=== PATIENT | female | born 1995 | race Caucasian/White ===

== ENCOUNTER 2017-05-28 23:30 | Emergency (ER) | payer OTHER ==
[~2017-05-28] VITALS: Ht 172.7 cm; Wt 72.8 kg
[2017-05-28 23:37] VITALS: TEMP 37.2; Ht 172.7 cm; Wt 72.8 kg
--- NOTE | 2017-05-29 00:08 | DIAGNOSTIC IMAGING REPORT ---
CT SCAN OF THE BRAIN WITHOUT IV CONTRAST CLINICAL HISTORY: Headache. Head injury. COMPARISON STUDY: No priors. TECHNIQUE: Unenhanced axial CT scan of the brain is performed from the vertex to the skull base. A dose lowering technique was utilized adhering to the principles of ALARA. CT DOSE: 537.48 mGy.cm FINDINGS: Brain parenchyma: The brain parenchyma is normal in appearance. There is no hemorrhage, mass effect, or evidence of acute territorial ischemia by CT criteria. Conteh-white matter is preserved. No extra-axial fluid collection is seen. Ventricles, sulci, cisterns: Normal in configuration. Intracranial vasculature: The visualized intracranial vasculature at the skull base is normal in appearance. Calvarium: There is no depressed calvarial fracture. Sinuses and mastoids: The visualized paranasal sinuses are clear. The mastoid air cells are well pneumatized. Orbits: The bony orbits are grossly intact. IMPRESSION: No acute intracranial abnormality. Electronically signed by: Krish Hardy M.D. 05/29/2017 12:06 AM Dictated Date/Time: 05/29/2017 12:05 AM
[2017-05-29 00:24] VITALS: BP 107/63; PULSE 90; O2SAT 97
--- NOTE | 2017-05-29 02:06 | EMERGENCY ROOM VISIT NOTE ---
History Report prepared by Rickey: Benji Gramajo Under the Supervision of: Dr. Benji Lucero M.D. First contact with patient: 23:45 Chief Complaint: HEAD INJURY (MINOR) Stated Complaint: POTENTIAL CONCUSSION,MAJOR HEADACHE History of Present Illness The patient is a 21 year old female who presents to the Emergency Room with complaints of a head injury that occurred yesterday around midnight, approximately 24 hours ago. Patient states that she was turning around to talk to a friend when she hit the back of her head against a wall after she "misjudged" how far she was from it. She denies passing out after hitting her head. She states she hit her head fairly hard. She states that she has a lot of pressure "all over her head". She state the pressure is exacerbated with movement. Patient adds that she has a headache, intermittent stuffy nose, and sore throat. She denies associated symptoms of vomiting and focal numbness. Patient states that she "moderately" drank alcohol yesterday. She adds that she had 4 alcoholic drinks today. She states that her last drink was 6 hours ago. Patient states that she woke up this morning with a headache. She states that she does not usually get headaches from drinking. Patient adds that she only hit her head once. She does complain of nausea. Source of History: patient Onset: Yesterday around midnight Position: head Quality: pressure Modifying Factors (Worsening): movement Associated Symptoms: + headache, + sorethroat, No vomiting, No numbness Note: Patient has a stuffy nose. Review of Systems See HPI for pertinent positives & negatives. A total of 10 systems reviewed and were otherwise negative. Past Medical & Surgical No pertinent past medical & surgical history. Family History No pertinent family history. Social History Smoking Status: Never Smoker Occupation Status: [employer] student Current/Historical Medications No Active Prescriptions or Reported Meds Allergies Coded Allergies: No Known Allergies (Unverified , 05/29/17) Physical Exam Vital Signs Date Time Temp Pulse Resp B/P (MAP) Pulse Ox O2 Delivery O2 Flow Rate FiO2 05/29/17 00:24 90 16 107/63 97 Room Air 05/28/17 23:37 37.2 103 18 110/65 95 Room Air Physical Exam Constitutional: Vital signs reviewed. Eyes: Pupils are equal round reactive to light. Conjunctiva are noninjected. ENT: Pharynx is clear without erythema or exudate. Mucous membranes are moist. Neck supple without meningeal signs. Respiratory: Clear to auscultation bilaterally. Breath sounds are equal bilaterally. Cardiovascular: Regular rate and rhythm. No rubs or gallops. GI: Soft, nondistended and nontender. Bowel sounds are present. Musculoskeletal: No peripheral edema. No lower extremity tenderness. Integumentary: No cyanosis. Neurological: The patient is awake and alert. Cranial nerves II-XII are intact. Motor is 5 out of 5 all extremities. Sensation is intact to light touch all extremities. Normal speech. No pronator drift. Psychiatric: Normal affect. Medical Decision & Procedures ER Provider Diagnostic Interpretation: Radiology results as stated below per my review and the radiologist's interpretation: CT SCAN OF THE BRAIN WITHOUT IV CONTRAST CLINICAL HISTORY: Headache. Head injury. COMPARISON STUDY: No priors. TECHNIQUE: Unenhanced axial CT scan of the brain is performed from the vertex to the skull base. A dose lowering technique was utilized adhering to the principles of ALARA. CT DOSE: 537.48 mGy.cm FINDINGS: Brain parenchyma: The brain parenchyma is normal in appearance. There is no hemorrhage, mass effect, or evidence of acute territorial ischemia by CT criteria. Conteh-white matter is preserved. No extra-axial fluid collection is seen. Ventricles, sulci, cisterns: Normal in configuration. Intracranial vasculature: The visualized intracranial vasculature at the skull base is normal in appearance. Calvarium: There is no depressed calvarial fracture. Sinuses and mastoids: The visualized paranasal sinuses are clear. The mastoid air cells are well pneumatized. Orbits: The bony orbits are grossly intact. IMPRESSION: No acute intracranial abnormality. Electronically signed by: Krish Hardy M.D. 05/29/2017 12:06 AM Dictated Date/Time: 05/29/2017 12:05 AM Laboratory Results Test 05/28/17 23:52 Bedside Urine Test NEG (NEG) Laboratory results as reviewed by me. ED Course 2345: The patient was evaluated in room A3. A complete history and physical exam was performed. 0020: Upon reevaluation, the patient appeared to have improvement of her symptoms. I discussed tonight's findings with her. I advised the patient to avoid alcohol. She verbalized agreement of the treatment plan. She was discharged home. Medical Decision This is a 21-year-old female presents with a head injury and headache. Differential diagnosis includes contusion, concussion, intracranial hemorrhage, hangover, migraine headache. I did perform a limited focused review of portions of the patient's old chart on the electronic medical record. The patient has had no prior visits to this hospital. I did evaluate the patient as noted above. The patient is presenting with headache after a recent head injury without LOC. She is also nauseated. Her GCS is 15. I did obtain a urine test which was negative. I did discuss risks and benefits of CT scanning with the patient. I did order a CT of the head. I did review the images myself as well as the radiology report as described above. There is no evidence of intracranial hemorrhage or acute abnormality. I did discuss the test results with the patient. She was advised to avoid alcohol and to follow-up with her doctor [facility]. She was discharged in good condition. She was given precautions regarding head injuries. Head Trauma GCS Score: 15 Medication Reconcilliation Current Medication List: was personally reviewed by me Blood Pressure Screening Patient's blood pressure: Normal blood pressure Blood pressure disposition: Did not require urgent referral Impression Primary Impression: Acute head injury Scribe Attestation The scribe's documentation has been prepared under my direct and personally reviewed by me in its entirety. I confirm that the note above accurately reflects all work, treatment, procedures, and medical decision making performed by me. Departure Information Dispostion Home / Self-Care Prescriptions No Active Prescriptions or Reported Meds Referrals No Doctor, Assigned (PCP) Forms HOME CARE DOCUMENTATION FORM, IMPORTANT VISIT INFORMATION Patient Instructions ED Head Injury Closed, My [facility] [address] Additional Instructions You have been examined and treated today on an emergency basis only. This is not a substitute for, or an effort to provide, complete comprehensive medical care. It is impossible to recognize and treat all injuries or illnesses in a single emergency department visit. It is therefore important that you follow up closely with [facility]. Call as soon as possible for an appointment. Return for worsening symptoms or if you develop fever, vomiting, numbness or weakness on one side of your body, difficulty with your speech gait or any other concerning symptoms. Problem Qualifiers Primary Impression: Acute head injury Encounter type: initial encounter Qualified Codes: S09.90XA - Unspecified injury of head, initial encounter
== END 2017-05-29 00:24 | disposition home or self-care (01) ==
LOC: C.EDB 23:32 → C.EDA 05-29 00:24
DX: S09.90XA Unspecified injury of head, initial encounter (principal); W22.8XXA Striking against or struck by other objects, initial encounter